=== PATIENT | female | born 1955 | race Hispanic/Latino ===

== ENCOUNTER 2022-11-10 02:08 | Observation (INO) | payer MEDICAID, SELFPAY ==
[2022-11-10] VITALS (14 sets, daily range): BP systolic 135–185; BP diastolic 50–76; PULSE 65–93; RESP 14–20; TEMP 36.3–36.6; O2SAT 100; BMI 37.2
--- NOTE | ~2022-11-10 | XR_ITS ---
EXAMINATION: XR chest 1V portable DATE: 11/10/2022 06:25 INDICATION: Hypertension TECHNIQUE: frontal view of the chest was obtained. COMPARISON: None FINDINGS: The lungs are clear with no focal airspace opacities, pulmonary edema, pleural effusion or pneumothor ax. The cardiomediastinal silhouette is normal. Visualized bones and soft tissues are unremarkable. IMPRESSION: 1. No acute cardiopulmonary disease. Reviewed, dictated and finalized at location A.
[2022-11-10] MEDS: LORazepam INJ (*CRX) 2 MG/ML VIAL 0.5 MG IV PUSH (04:39)
[2022-11-10] MEDS: hydrALAZINE HCL 20 MG/ML VIAL 10 MG IV PUSH (04:39)
[2022-11-10 04:48] LABS: Appearance Urine Cloudy (Clear); Bacteria Urine None Seen /hpf; Bilirubin Urine Negative (Negative); Color Urine Yellow (Yellow); Glucose Urine UA Trace mg/dL (Negative); Ketones Urine Negative (Negative); Leukocyte Esterase Ur 1+ LEU/UL (Negative); Need Manual Microscopic Reviewed; Nitrate Urine Negative (Negative); Non Pathogenic Casts 0-2; Protein Urine Negative (Negative); Specific Grav Ur 1.012 (1.001-1.035); Squamous Epithelial Cell Urine None seen /hpf (Few); Urobilinogen Urine 0.2 mg/dL (<2.0); WBC Urine 0-5 /hpf; pH Urine 6.5 (5.0-9.0)
[2022-11-10 04:49] LABS: Add Urine Microscopic? YES
[2022-11-10] MEDS: hydroCHLOROthiazide 25 MG TABLET PO (05:26)
[2022-11-10] MEDS: LOSARTAN POTASSIUM 100 MG TABLET PO (05:26)
[2022-11-10 05:33] LABS: Basophils Percent Auto 0.4 % (0.2-1.2); Eosinophils Percent Auto 0.4 % (0-4.4); Hematocrit 32.1 % (37.0-47.0); Hemoglobin 10.9 g/dL (12.0-15.0); Immature Granulocyte Absolute 0.04 K/mm3 (0.00-0.031); Immature Granulocyte Percent A 0.4 % (0-0.5); Lymphocytes Absolute Auto 1.93 K/mm3 (0.9-3.2); Lymphocytes Percent Auto 17.2 % (18.3-44.2); Mean Corpuscular Hemoglobin 30.7 pg (26-34); Mean Corpuscular Volume 90.4 fl (80-100); Mean Platelet Volume 9.9 fl (7.4-10.4); Monocytes Absolute Auto 0.6 K/mm3 (0.1-0.6); Monocytes Percent Auto 5.7 % (2.6-8.5); Neutrophils Absolute Auto 8.6 K/mm3 (1.3-6.7); Neutrophils Percent Auto 75.9 % (45.5-73.1); Platelet Count Result 330 k/mm3 (150-375); Red Blood Count 3.55 M/mm3 (4.2-5.4); Red Cell Distribution Width 12.2 % (11.5-14.5); White Blood Count 11.3 K/mm3 (4.5-10.0)
--- NOTE | 2022-11-10 05:33 | ED.GENADULT ---
HPI - General Adult General Chief complaint: Recheck/Abnormal Lab/Rx Stated complaint: high blood pressure Time Seen by Provider: 11/10/22 03:34 History of Present Illness HPI narrative: 67-year-old female presented the emergency department for evaluation for elevated blood pressure. Patient had been on losartan hydrochlorothiazide tablets prescribed by her primary care physician that is local. Patient was in [place] had cardiac testing and at that time her blood pressure was running lower so she had her blood pressure medication switched to telmisartan 80 mg and hydrochlorothiazide 12.5 mg. Patient has been taking the new blood pressure medication for about the past 2 weeks and states that her blood pressures are now elevated. Patient does report associated headache. Patient also took some fluoxetine tonight to help her sleep . Patient feels that this has worsened her anxiety. Patient denies any chest pain or shortness of breath. Patient denies any nausea vomiting diarrhea. Related Data Home Medications Medication Instructions Recorded Confirmed aspirin 81 mg tablet 81 mg PO DAILY 11/10/22 11/10/22 glimepiride 2 mg tablet 2 mg PO DAILY 11/10/22 11/10/22 pravastatin 10 mg tablet 10 mg PO DAILY 11/10/22 11/10/22 Allergies Allergy/AdvReac Type Severity Reaction Status Date / Time naproxen Allergy Unknown Unknown Verified 11/10/22 10:52 Review of Systems Review of Systems: All systems reviewed & are unremarkable except as noted in HPI and below PMFSH Past Medical History Medical History (Updated 11/11/22 @ 12:36 by Albert Herrera MD) Diabetes mellitus Hypertension Social History Social History Smoking status: Never smoker Alcohol intake: never Substance use: never Substance use type: does not use Lack of Transportation: No Lack of Food: Never True Current Housing: I Have Housing Concerned About Future Housing: No Difficulty Paying Gas/Electric Bills: No Difficulty Paying for Meds: No Currently Unemployed: No Education: Decline to Answer Difficulty w/ Childcare or Family Care: No Spiritual care concerns: No Exam Narrative: APPEARANCE: Well appearing, no pain, no distress, well-nourished. HEAD: normocephalic, atraumatic. EYES: PERRLA/EOMI, conjunctivae clear. NOSE: Normal no drainage EARS:TMS clear with good light reflex. THROAT: Pharynx clear, no exudate. NECK: Supple. No adenopathy, no masses. RESPIRATORY: Airway patent, respirations nonlabored. Clear to auscultation bilaterally, no rales, rhonchi, wheezing. CARDIOVASCULAR: Regular rate and rhythm without murmurs rubs or gallops. ABDOMINAL: Soft, nontender, nondistended, normal bowel sounds MUSCULOSKELETAL: Moves all extremities. Strength/ROM intact, No edema, No calf tenderness. NEURO: Alert. Cranial nerves II through XII intact. Grossly intact SKIN: Warm, dry. Normal Color Course Course Emergency Course: 67-year-old female presented the ED for evaluation of elevated blood pressure. Patient was treated with IV hydralazine and restarted on her losartan hydrochlorothiazide. Patient was written for prescription for her losartan hydrochlorothiazide combo tablet and advised to resume her prescribed medication and to stop taking the medication that was prescribed in [place]. Patient had her CMP come back with a sodium of 120. Patient was treated with a liter normal saline. Case discussed with hospitalist [facility] Vital Signs Vital signs: Vital Signs Temperature 97.9 F 11/10/22 02:09 Pulse Rate 80 11/10/22 02:09 Respiratory Rate 14 11/10/22 02:09 Blood Pressure 183/76 H 11/10/22 02:09 Pulse Oximetry 100 11/10/22 02:09 Oxygen Delivery Room Air 11/10/22 02:09 Temperature 98 F 11/12/22 04:30 Pulse Rate 77 11/12/22 04:30 Respiratory Rate 16 11/12/22 04:30 Blood Pressure 147/65 H 10/17
[2022-11-10 05:50] LABS: Alanine Aminotransferase 24 U/L (6-35); Albumin Level 4.5 g/dL (3.5-5.1); Alkaline Phosphatase 79 U/L (38-126); Anion Gap 11 mmol/L (8-16); Aspartate Amino Transferase 29 U/L (14-36); Bilirubin,Total 0.5 mg/dL (0.2-1.3); Blood Urea Nitrogen 16 mg/dL (7-17); Carbon Dioxide 21 mmol/L (22-30); Chloride 88 mmol/L (98-107); Estimated CRCL calculation 52 ml/min; Estimated Glomerular Filt Rate > 60; Glucose 190 mg/dL (65-110); Potassium 3.9 mmol/L (3.4-5.0); Sodium 120 mmol/L (137-145)
--- NOTE | 2022-11-10 06:04 | ECG_ITS ---
Measurements Intervals Rolfe Rate: 89 P: 45 PA: 203 QRS: 52 QRSD: 88 T: 39 QT: 374 QTc: 457 Interpretive Statements SINUS RHYTHM POSSIBLE RIGHT VENTRICULAR CONDUCTION DELAY [RSR (QR) IN V1/V2] NONSPECIFIC T-WAVE ABNORMALITY NO PREVIOUS ECG AVAILABLE FOR COMPARISON Electronically Signed On 11-10-2022 11:39:12 CDT by Catherine Cabrera MD
[2022-11-10] MEDS: SODIUM CHLORIDE 0.9% IV 1,000 ML 999 ML IV CONT (06:05)
--- NOTE | 2022-11-10 08:33 | ADMGEN ---
This patient, Zelda Kincaid, was admitted to Medical Room 341-01. Patient/family oriented to hospital policies and general routines including ID bracelet, bed and alarms, visiting hours, pain management, procedures, bathroom and other care routines, personal items, smoking policy, room service/diet, and visiting hours. Information on how to activate the Rapid Response Team has been discussed. Patient/Family are encouraged to report perceived risks to care and to ask questions if they do not understand what they are told or what they should do.
[2022-11-10 11:17] LABS: Sodium 125 mmol/L (137-145)
--- NOTE | 2022-11-10 11:24 | PM.IMHP ---
H&P: HPI History of Present Illness Date/Time: 11/10/22 11:24 Chief Complaint: 67-year-old female presented the emergency department for evaluation for elevated blood pressure.? Patient had been on losartan hydrochlorothiazide tablets prescribed by her primary care physician that is local.? Patient was in [place] had cardiac testing and at that time her blood pressure was running lower so she had her blood pressure medication switched to telmisartan 80 mg and hydrochlorothiazide 12.5 mg.? Patient has been taking the new blood pressure medication for about the past 2 weeks and states that her blood pressures are now elevated.? Patient does report associated headache.? Patient also took some fluoxetine tonight to help her sleep .? Patient feels that this has worsened her anxiety.? Patient denies any chest pain or shortness of breath.? Patient denies any nausea vomiting diarrhea. Review of Systems Review of Systems: Ten point review of systems negative [facility] Social History Social History Smoking status: Never smoker Alcohol intake: never Substance use: never Substance use type: does not use Lack of Transportation: No Lack of Food: Never True Current Housing: I Have Housing Concerned About Future Housing: No Difficulty Paying Gas/Electric Bills: No Difficulty Paying for Meds: No Currently Unemployed: No Education: Decline to Answer Difficulty w/ Childcare or Family Care: No Spiritual care concerns: No Meds Home Medications and Allergies Home Medications Medication Instructions Recorded Confirmed Type aspirin 81 mg tablet 81 mg PO DAILY 11/10/22 11/10/22 History losartan 100 1 tablet PO DAILY #14 tabs 11/10/22 Rx mg-hydrochlorothiazide 25 mg tablet Allergies Allergy/AdvReac Type Severity Reaction Status Date / Time naproxen Allergy Unknown Unknown Verified 11/10/22 10:52 Vital Signs Vital Signs - 24 hr 11/10/22 02:09 11/10/22 03:44 11/10/22 03:45 Temperature 97.9 F 97.5 F L Pulse Rate 80 85 93 Respiratory Rate 14 14 Blood Pressure 183/76 H 185/74 H Pulse Oximetry 100 100 Oxygen Delivery Room Air Fraction of Inspired Oxygen 11/10/22 04:53 11/10/22 07:45 11/10/22 08:41 Temperature 97.7 F Pulse Rate 79 86 Respiratory Rate 14 16 Blood Pressure 146/66 H 141/68 H 135/50 L Pulse Oximetry 100 100 100 Oxygen Delivery Fraction of Inspired Oxygen 11/10/22 09:11 11/10/22 10:39 Temperature Pulse Rate 86 Respiratory Rate 16 Blood Pressure Pulse Oximetry 100 100 Oxygen Delivery Room Air Room Air Fraction of Inspired Oxygen 21 21 Exam Narrative: General: alert and oriented Psych: appropriate mood nad affect Eyes: PERRLA Neck: Trachea midline, no new lesions Skin: no changes Lungs: CTA Cardiac: Normal S1,S2, no MGR ABD: soft, nd, nt, nbs Ext: no new lesions, no cce Vasc: Pulses intact H&P: Results Labs Labs: Short CBC 11/10/22 Range/Units 05:24 WBC 11.3 H (4.5-10.0) K/mm3 Hgb 10.9 L (12.0-15.0) g/dL Hct 32.1 L (37.0-47.0) % Plt Count 330 (150-375) k/mm3 BMP 11/10/22 11/10/22 05:24 11:04 Sodium 120 L 125 L Potassium 3.9 Chloride 88 L Carbon Dioxide 21 L BUN 16 Creatinine 0.90 Glucose 190 H Calcium 9.0 Liver Function 11/10/22 Range/Units 05:24 Total Bilirubin 0.5 (0.2-1.3) mg/dL AST 29 (14-36) U/L ALT 24 (6-35) U/L Alkaline Phosphatase 79 (38-126) U/L Albumin 4.5 (3.5-5.1) g/dL Urine 11/10/22 Range/Units 04:31 Urine Color Yellow (Yellow) Urine Appearance Cloudy H (Clear) Urine pH 6.5 (5.0-9.0) Ur Specific [place] 1.012 (1.001-1.035) Urine Protein Negative (Negative) mg/dL Urine Glucose (UA) Trace H (Negative) mg/dL Assessment and Plan Assessment and plan (1) Hypertension: Code(s): I10 - Essential (primary) hypertension Status: Acu
[2022-11-10] MEDS: ACETAMINOPHEN 325 MG TABLET 650 MG PO (12:14)
[2022-11-10 16:33] LABS: Glucose Point of Care 130 mg/dl (65-105)
[2022-11-10 18:52] LABS: Sodium 126 mmol/L (137-145)
[2022-11-10 21:13] LABS: Glucose Point of Care 134 mg/dl (65-105)
[2022-11-10 23:38] LABS: Sodium 124 mmol/L (137-145)
[2022-11-11] VITALS: PULSE 67
[2022-11-11 04:00] VITALS: PULSE 60
[2022-11-11 04:43] VITALS: BP 150/67; PULSE 86; RESP 20; TEMP 36.1; O2SAT 100
[2022-11-11 07:00] LABS: Anion Gap 7 mmol/L (8-16); Blood Urea Nitrogen 16 mg/dL (7-17); Calcium 9.5 mg/dL (8.4-10.2); Carbon Dioxide 21 mmol/L (22-30); Chloride 97 mmol/L (98-107); Estimated Glomerular Filt Rate > 60; Glucose 124 mg/dL (65-110); Potassium 4.1 mmol/L (3.4-5.0); Sodium 125 mmol/L (137-145)
[2022-11-11 08:20] LABS: Glucose Point of Care 130 mg/dl (65-105)
[2022-11-11 09:00] VITALS: PULSE 86; RESP 20; O2SAT 100
[2022-11-11] MEDS: ASPIRIN 81 MG ENTERIC TABLET PO (09:03)
[2022-11-11] MEDS: PRAVASTATIN SODIUM 10 MG TABLET PO (09:03)
[2022-11-11] MEDS: LOSARTAN POTASSIUM 50 MG TABLET PO (09:04)
[2022-11-11 12:06] LABS: Glucose Point of Care 139 mg/dl (65-105)
--- NOTE | 2022-11-11 12:34 | PM.IMPN ---
Progress Note: A&P Assessment and Plan (1) Acute hyponatremia: Code(s): E87.1 - Hypo-osmolality and hyponatremia Status: Acute Assessment and Plan: Na 120 on admission. Likely secondary to blood pressure medication. She does drink excessive amounts of water so maybe alos be playing a part. HCTZ held. treated with IV fluids. IV fluids off now Sodium better at 125 Continue serial sodium Check urine Na, Cr, urea (2) Hypertension: Code(s): I10 - Essential (primary) hypertension Status: Acute Assessment and Plan: Patient's blood pressure was reviewed on 11/11 Blood pressure remains reasonably well controlled. Will resume losartan. Okay to stop tele (3) Diabetes mellitus: Code(s): E11.9 - Type 2 diabetes mellitus without complications Status: Acute Assessment and Plan: The patient's blood glucose was reviewed on 11/11 Glucose remains well controlled. Continue AccuCheks covering with sliding scale. Hypoglycemia protocol available as needed. Continue to monitor Subjective Date/time seen: 11/11/22 12:34 Interval history: 67yo female with DM and HTN here for elevated blood pressure. Assuming care. Chart reviewed. She feels well. No CP or SOB. Exam Narrative: AF 96.9 150/67 86 20 100% ra Gen - NARD Chest - CTA bilaterally, nml RR CV - RRR S1/S2. Tele showing no significant dysrhythmias Abd - Soft, NT/ND, Positive BS Ext - No pedal edema Psych - Nml mood and affect Skin - Warm and dry Objective Data Vital Signs Vital Signs: Vital Signs - 24 hr 11/10/22 14:00 11/10/22 16:00 11/10/22 20:00 Temperature 97.4 F L Pulse Rate 86 65 82 Respiratory Rate 16 Blood Pressure 153/69 H Pulse Oximetry 100 Oxygen Delivery 11/10/22 21:30 11/10/22 20:00 11/11/22 00:00 Temperature 97.8 F Pulse Rate 80 67 Respiratory Rate 20 Blood Pressure 153/72 H Pulse Oximetry 100 Oxygen Delivery Room Air 11/10/22 21:46 11/11/22 04:00 11/11/22 04:43 Temperature 96.9 F L Pulse Rate 60 86 Respiratory Rate 20 Blood Pressure 150/67 H Pulse Oximetry 100 100 Oxygen Delivery Room Air Intake/Output Intake/Output: Intake & Output 11/08/22 11/09/22 11/10/22 11/11/22 23:59 23:59 23:59 23:59 Intake Total 1660 490 Output Total 500 Balance 1160 490 Meds/Results Medications: Active Medications Generic Name Dose Route Start Last Admin Trade Name Freq PRN Reason Stop Dose Admin Acetaminophen 650 mg 11/10/22 11:23 11/10/22 12:14 Acetaminophen 325 Mg Tablet PO 650 mg Q6H PRN Administration Mild Pain (1-3) or Fever Aspirin 81 mg 11/11/22 09:00 11/11/22 09:03 Aspirin 81 Mg Enteric Tablet PO 12/11/22 08:59 81 mg DAILY TARIQ Administration Dextrose 12.5 gm 11/10/22 10:43 Dextrose 50% 25 Gm/50 Ml Syringe IV PUSH PRN PRN Hypoglycemia Protocol Glucagon 1 mg 11/10/22 10:43 Glucagon For Inj 1 Mg Vial IM PRN PRN Hypoglycemia Protocol Glucose 15 gm 11/10/22 10:43 Glucose Oral Gel 15 Gm Of Glucse In 37.5 Gm Tube PO PRN PRN Hypoglycemia Protocol Dextrose 1,000 mls @ 100 mls/hr 11/10/22 10:43 Dextrose 5% 1,000 Ml IVPB PRN PRN Hypoglycemia Protocol Insulin Aspart 2 - 5 units 11/10/22 12:00 11/11/22 12:12 Insulin Aspart (*Bkc) 100 Units/Ml SUB-Q Not Given TIDWM TARIQ Protocol Losartan Potassium 50 mg 11/11/22 09:00 11/11/22 09:04 Losartan Potassium 50 Mg Tablet PO 50 mg DAILY TARIQ Administration Pravastatin Sodium 10 mg 11/11/22 09:00 11/11/22 09:03 Pravastatin Sodium 10 Mg Tablet PO 10 mg DAILY TARIQ Administration Radiology Results: ITS Impressions Chest X-Ray 11/10/22 07:48 IMPRESSION: 1. No acute cardiopulmonary disease. Labs Labs: Laboratory Results - last 24 hr 11/10/22 11/10/22 11/10/22 16:25 18:21 20:07 Sodium 126 L Potass
[2022-11-11 13:26] LABS: Sodium 126 mmol/L (137-145)
[2022-11-11 14:00] VITALS: BP 152/83; PULSE 77; RESP 14; TEMP 36.6; O2SAT 100
[2022-11-11 16:14] LABS: Creatinine Urine 46.3 mg/dL; Urea Random Urine 398 MG/DL
[2022-11-11 16:26] LABS: Sodium Urine Random 41 meq/L
[2022-11-11 17:26] LABS: Glucose Point of Care 111 mg/dl (65-105)
[2022-11-11 19:39] LABS: Sodium 127 mmol/L (137-145)
[2022-11-11 21:04] VITALS: BP 141/62; PULSE 70; RESP 18; TEMP 36.3; O2SAT 100
[2022-11-11 21:17] LABS: Glucose Point of Care 149 mg/dl (65-105)
[2022-11-12 01:31] LABS: Sodium 128 mmol/L (137-145)
[2022-11-12 04:30] VITALS: BP 147/65; PULSE 77; RESP 16; TEMP 36.6; O2SAT 100
[2022-11-12 08:18] LABS: Anion Gap 6 mmol/L (8-16); Blood Urea Nitrogen 20 mg/dL (7-17); Calcium 9.5 mg/dL (8.4-10.2); Carbon Dioxide 25 mmol/L (22-30); Chloride 97 mmol/L (98-107); Estimated Glomerular Filt Rate 55; Glucose 141 mg/dL (65-110); Potassium 3.9 mmol/L (3.4-5.0); Sodium 128 mmol/L (137-145)
[2022-11-12 08:42] LABS: Glucose Point of Care 153 mg/dl (65-105)
[2022-11-12 09:05] VITALS: O2SAT 100
[2022-11-12] MEDS: PRAVASTATIN SODIUM 10 MG TABLET PO (09:05)
[2022-11-12] MEDS: LOSARTAN POTASSIUM 50 MG TABLET PO (09:05)
[2022-11-12] MEDS: ASPIRIN 81 MG ENTERIC TABLET PO (09:05)
[2022-11-12 12:22] LABS: Glucose Point of Care 163 mg/dl (65-105)
[2022-11-12 12:45] LABS: Sodium 132 mmol/L (137-145)
--- NOTE | 2022-11-12 13:10 | PM.DS ---
DS: Admitting Diagnosis Discharge Date 11/12/22 Admitting Diagnosis Elevated blood pressure DS: Discharge Diagnosis Discharge Diagnosis (1) Acute hyponatremia: Code(s): E87.1 - Hypo-osmolality and hyponatremia Status: Acute (2) Hypertension: Code(s): I10 - Essential (primary) hypertension Status: Acute (3) Diabetes mellitus: Code(s): E11.9 - Type 2 diabetes mellitus without complications Status: Acute DS: Summary Hospital Course Reason for hospitalization: 67yo female with DM and HTN here for elevated blood pressure. Please see H&P for details. Hospital Course: Patient presents with complaints of elevated blood pressure. Blood pressure was 183/76 on admission. She was given hydralazine, losartan and HCTZ in the ED. she was continued on her losartan with hydrochlorothiazide was stopped due to her hyponatremia. Blood pressure became better controlled. She was on telemetry but there is no significant dysrhythmias. Na 120 on admission. Likely secondary to HCTZ. She was treated with IV fluids. Sodium climbed slowly to 132. She remained asymptomatic regarding her hyponatremia. A1c 7.0. The patient's blood glucose was monitored closely with AccuCheks covering with sliding scale.?Hypoglycemia protocol was available as needed.? She overall did well and was able to be discharged home on 11/12/2022. Status at Discharge Cognitive/behavioral status at discharge: stable Time Spent with Patient Time attestation: Total time spent providing and/or coordinating discharge services: 32 minutes Time spent: Greater than 30 minutes Exam Narrative: AF 98.0 147/65 77 16 100% ra Gen - NARD Chest - CTA bilaterally, nml RR CV - RRR S1/S2 Abd - Soft, NT/ND, Positive BS Ext - No pedal edema Psych - Nml mood and affect Skin - Warm and dry DS: Data Data Completed and Pending Labs on day of discharge: Labs from last 24 hours 11/12/22 11/12/22 11/12/22 12:34 12:18 08:40 Sodium 132 L Potassium Chloride Carbon Dioxide Anion Gap BUN Creatinine Estim Creat Clear Calc Estimated GFR Glucose POC Capillary Glucose 163 H 153 H Hemoglobin A1c Calcium Ur Random Sodium Ur Random Urea Urine Creatinine 11/12/22 11/12/22 11/11/22 08:02 01:05 21:08 Sodium 128 L 128 L Potassium 3.9 Chloride 97 L Carbon Dioxide 25 Anion Gap 6 L BUN 20 H Creatinine 1.00 Estim Creat Clear Calc Not Reportable Estimated GFR 55 L Glucose 141 H POC Capillary Glucose 149 H Hemoglobin A1c 7.0 H Calcium 9.5 Ur Random Sodium Ur Random Urea Urine Creatinine 11/11/22 11/11/22 11/11/22 19:24 17:19 15:58 Sodium 127 L Potassium Chloride Carbon Dioxide Anion Gap BUN Creatinine Estim Creat Clear Calc Estimated GFR Glucose POC Capillary Glucose 111 H Hemoglobin A1c Calcium Ur Random Sodium 41 Ur Random Urea 398 Urine Creatinine 46.3 11/11/22 13:05 Sodium 126 L Potassium Chloride Carbon Dioxide Anion Gap BUN Creatinine Estim Creat Clear Calc Estimated GFR Glucose POC Capillary Glucose Hemoglobin A1c Calcium Ur Random Sodium Ur Random Urea Urine Creatinine Discharge Plan Discharge Attending physician on discharge: Albert Herrera Discharging Clinician: Albert Herrera Anticipated Discharge Date/Time: 11/12/22 13:18 Patient Disposition: Home, Self-Care Activity: as tolerated Diet: diabetic Discharge Instructions: Please provide discharge instructions in [place] Please check glucose before meals and before bed. Record and bring into your doctor for review. Check blood pressure 1 to 2 times a day. Record and bring into your doctor for review. Call your doctor if your blood pressure is greater than 180/110. Take precautions to avoid falls. Rise slowly from a lying or sitt
[2022-11-13 13:52] LABS: Osmolality, Urine 165 mOsm/kg (50-1200)
== END 2022-11-12 14:05 | disposition home or self-care (01) ==
LOC: ANHED 04:07 → ANH3MED 11-12 13:19
PROVIDERS: Internal Medicine; Admitting Provider Chiropractor; Emergency Provider Emergency Medicine; PCP Registered Nurse; Visit Provider Internal Medicine
DX: E87.1 Hypo-osmolality and hyponatremia (principal); I10 Essential (primary) hypertension; E11.9 Type 2 diabetes mellitus without complications; R51.9 Headache, unspecified; F41.9 Anxiety disorder, unspecified; R94.31 Abnormal electrocardiogram [ECG] [EKG]; Z79.1 Long term (current) use of non-steroidal anti-inflammatories (NSAID)
CPT/HCPCS: 36415; 71045; 80048; 80053; 81001; 82570; 82948; 83036; 83930; 83935; 84295; 84300; 84540; 85025; 93005; 96361; 96374; 96375; 99285; A9270; G0378; G0379; J0360; J2060; J7030